=== PATIENT | male | born 1965 | race Caucasian/White ===

== ENCOUNTER 2017-06-10 23:38 | Emergency (ER) | payer SELFPAY ==
--- NOTE | 2017-06-11 00:16 | ED Physician Documentation ---
Lower Extremity Injury - HISTORIAN Historian: patient - HPI Stated Complaint: left knee pain Chief Complaint: Lower Extremity Injury Additional Information: pain swelling lt knee onset approx 5 weeks ago when jumped across ditch-heard pop has hurt and swollen since. saw a dr who told him he needed an MRI. did not treat the knee-tylenol has not helped-can not take ibu due to peptic ulcer disease Onset: days ago (37-pt est 5 weeks) Where: work Severity: moderate Context: twist Associated Symptoms:: tingling, swelling, snapping sensation, popping sensation. denies: numbness distally Modifying Factors:: pain on movement - ROS CONST: no problems CVS/RESP: none MS/SKIN/LYMPH: none NEURO: denies: headache, head injury - PAST HX Past History: other (peptic acid disease) Allergies/Adverse Reactions: Allergies Allergy/AdvReac Type Severity Reaction Status Date / Time No Known Allergies Allergy Verified 06/10/17 23:50 Home Medications: Ambulatory Orders Medication Instructions Recorded NK [NK] 06/10/17 - SOCIAL HX Smoking History: less than 1 pack/day Alcohol Use: occasionally Drug Use: none - FAMILY HX Family History: none - VITAL SIGNS Vital Signs: Vital Signs Temp Pulse Resp BP Pulse Ox 98.4 F 87 18 127/72 99 06/10/17 23:39 06/10/17 23:39 06/10/17 23:39 06/10/17 23:39 06/10/17 23:39 - REVIEWED ASSESSMENTS Nursing Assessment Reviewed: Yes Vitals Reviewed: Yes ED Results Lab/Radiology - Radiology Radiology Impressions: no fracture seen. - Orders Orders: ED Orders Category Date Time Status KNEE 3 VIEWS [RAD] Stat Exams 06/11/17 Ordered traMADol HCL [Ultram] Med 06/11/17 00:11 Once 50 mg PO NOW ONE Lower Extremities Injury Phy - Physical Exam General Appearance: moderate distress Ligaments: pain on anterior drawer, laxity on posterior drawe, pain on medial stress, pain on lateral stress, other (ssig swelling) Gait: limited by pain, antalgic gait Neuro/Vascular/Tendon: no vascular compromise, motor nml, sensation nml, abnml warmth. No: abnml cap refill Resp/CVS: chest non-tender, breath sounds nml, heart sounds nml, no resp. distress, lungs clear, reg. rate & rhythm Abdomen: non-tender Discharge Clincal Impression: acute sprain lt knee Home Medications: Ambulatory Orders NK [NK] 06/10/17 Comments: meds and crutches. see ortho-consider scoping or mri. rest keep elevated Condition: Good Disposition: 01 HOME, SELF-CARE Decision to Admit: NO Decision Time: 00:37
[2017-06-11] MEDS: traMADol HCL 50 MG TABLET PO ONE (00:34)
--- NOTE | 2017-06-11 00:48 | Diagnostic Imaging Report ---
REJI PEREZ [facility] [id number] [facility].[address] [id number] Report Submission Date: Jun 11, 2017 12:35:46 AM CDT Patient Study Name: RICHARD HAWKINS Date: Jun 11, 2017 12:14:31 AM CDT Modality Type: CR Gender: M Description: LOWER EXTREMITY : 69 Institution: [facility] Physician: REJI PEREZ Left knee - three views Clinical history: Injury yesterday. Pain and swelling. Findings: Examination of the left knee in AP, lateral and sunrise views demonstrates degenerative changes with slight narrowing of the joint space worse medially. There is no evident fracture or joint effusion and no lytic or blastic lesion. Impression: 1. Mild degenerative changes. 2. No fracture. Electronically signed on Jun 11, 2017 12:35:46 AM CDT by: Hossein HALE
[2017-06-11 00:54] VITALS: BP 122/78
== END 2017-06-11 00:46 | disposition home or self-care (01) ==
LOC: ED 23:38
DX: S83.92XA Sprain of unspecified site of left knee, initial encounter (principal); X58.XXXA Exposure to other specified factors, initial encounter; Y93.9 Activity, unspecified; Y99.9 Unspecified external cause status
CPT/HCPCS: 73562; 99283